=== PATIENT | male | born 1940 | race Caucasian/White ===

== ENCOUNTER → 2023-08-21 11:59 | Outpatient (REF) | payer MEDICARE, OTHER, SELFPAY | LOC: RAD 11:59 | PROVIDERS: ATTENDING PHYSICIAN Physician Assistant | DX: R05.1 Acute cough (principal) | CPT/HCPCS: 71046 ==

== ENCOUNTER → 2023-11-29 08:55 | Outpatient (REF) | payer MEDICARE, OTHER, SELFPAY | LOC: RCS 08:55 | PROVIDERS: ATTENDING PHYSICIAN Internal Medicine Cardiovascular Disease; FAMILY PHYSICIAN Physician Assistant | DX: R06.02 Shortness of breath (principal) | CPT/HCPCS: 93017; 93350 ==

== ENCOUNTER 2024-08-06 06:22 | Day surgery (SDC) | payer MEDICARE, OTHER, SELFPAY | END 2024-08-06 10:19 | disposition home or self-care (01) | LOC: GI 06:22 | PROVIDERS: ATTENDING PHYSICIAN Internal Medicine Gastroenterology | DX: Z12.11 Encounter for screening for malignant neoplasm of colon (principal); D12.2 Benign neoplasm of ascending colon; K64.8 Other hemorrhoids; K22.70 Barrett's esophagus without dysplasia; Z86.0100 Personal history of colon polyps, unspecified | CPT/HCPCS: 45385; 43239; 88305 ==